=== PATIENT | female | born 1995 ===

== ENCOUNTER 2024-08-10 13:09 | Outpatient (RCR) | payer OTHER, SELFPAY | END 2024-08-12 05:48 | disposition home or self-care (01) | LOC: RPT 13:09 | PROVIDERS: ATTENDING PHYSICIAN Physical Medicine & Rehabilitation; FAMILY PHYSICIAN Family Medicine | DX: M22.2X2 Patellofemoral disorders, left knee (principal); Z73.6 Limitation of activities due to disability | CPT/HCPCS: 97110; 97162 ==